=== PATIENT | female | born 1950 | race Two or more races ===

== ENCOUNTER 2017-04-14 11:28 | Outpatient (CLI) | payer OTHER | END 2017-04-14 14:36 | disposition home or self-care (01) | LOC: MAMO-SONO 11:28 | DX: E55.9 Vitamin D deficiency, unspecified (principal); N60.12 Diffuse cystic mastopathy of left breast; N60.11 Diffuse cystic mastopathy of right breast; R92.1 Mammographic calcification found on diagnostic imaging of breast; R87.610 Atypical squamous cells of undetermined significance on cytologic smear of cervix (ASC-US); M89.9 Disorder of bone, unspecified; Z12.31 Encounter for screening mammogram for malignant neoplasm of breast ==

== ENCOUNTER 2017-04-16 12:53 | Outpatient (CLI) | payer OTHER | END 2017-04-16 13:00 | disposition home or self-care (01) | LOC: NUCLEAR 12:53 | DX: E55.9 Vitamin D deficiency, unspecified (principal); N60.12 Diffuse cystic mastopathy of left breast; N60.11 Diffuse cystic mastopathy of right breast; R92.1 Mammographic calcification found on diagnostic imaging of breast; R87.610 Atypical squamous cells of undetermined significance on cytologic smear of cervix (ASC-US); M89.9 Disorder of bone, unspecified ==

== ENCOUNTER 2017-09-03 11:45 | Outpatient (CLI) | payer OTHER | END 2017-09-03 11:52 | disposition home or self-care (01) | LOC: RAD 11:45 | DX: S14.5XXA Injury of cervical sympathetic nerves, initial encounter (principal); S69.82XA Other specified injuries of left wrist, hand and finger(s), initial encounter; S29.8XXA Other specified injuries of thorax, initial encounter ==

== ENCOUNTER 2018-04-22 11:29 | Outpatient (CLI) | payer OTHER | END 2018-04-22 11:46 | disposition home or self-care (01) | LOC: MAMO-SONO 11:29 | DX: R92.1 Mammographic calcification found on diagnostic imaging of breast (principal); E55.9 Vitamin D deficiency, unspecified; N60.12 Diffuse cystic mastopathy of left breast; N60.11 Diffuse cystic mastopathy of right breast; R87.610 Atypical squamous cells of undetermined significance on cytologic smear of cervix (ASC-US); M89.8X8 Other specified disorders of bone, other site; Z12.31 Encounter for screening mammogram for malignant neoplasm of breast ==

== ENCOUNTER 2019-04-02 10:57 | Outpatient (CLI) | payer OTHER | END 2019-04-02 11:01 | disposition home or self-care (01) | LOC: NUCLEAR 10:57 | DX: M89.8X0 Other specified disorders of bone, multiple sites (principal); N60.12 Diffuse cystic mastopathy of left breast; N60.11 Diffuse cystic mastopathy of right breast; R92.1 Mammographic calcification found on diagnostic imaging of breast; R87.610 Atypical squamous cells of undetermined significance on cytologic smear of cervix (ASC-US); E55.9 Vitamin D deficiency, unspecified; M81.0 Age-related osteoporosis without current pathological fracture; M85.89 Other specified disorders of bone density and structure, multiple sites; N83.201 Unspecified ovarian cyst, right side; N83.202 Unspecified ovarian cyst, left side; N83.8 Other noninflammatory disorders of ovary, fallopian tube and broad ligament; N83.292 Other ovarian cyst, left side; N83.291 Other ovarian cyst, right side ==

== ENCOUNTER 2019-08-10 15:05 | Outpatient (CLI) | payer OTHER | END 2019-08-10 15:16 | disposition home or self-care (01) | LOC: MAMO-SONO 15:05 | DX: Z12.31 Encounter for screening mammogram for malignant neoplasm of breast (principal); E55.9 Vitamin D deficiency, unspecified; N60.12 Diffuse cystic mastopathy of left breast; N60.11 Diffuse cystic mastopathy of right breast; R92.1 Mammographic calcification found on diagnostic imaging of breast; R87.610 Atypical squamous cells of undetermined significance on cytologic smear of cervix (ASC-US); M89.8X8 Other specified disorders of bone, other site; N76.2 Acute vulvitis; N83.9 Noninflammatory disorder of ovary, fallopian tube and broad ligament, unspecified; N83.209 Unspecified ovarian cyst, unspecified side; N60.19 Diffuse cystic mastopathy of unspecified breast ==

== ENCOUNTER 2019-12-14 10:17 | Outpatient (CLI) | payer OTHER | END 2019-12-14 10:33 | disposition home or self-care (01) | LOC: SONOGRAMA 10:17 | PROVIDERS: ATTEND Obstetrics & Gynecology Gynecology | DX: N83.292 Other ovarian cyst, left side (principal); N83.291 Other ovarian cyst, right side; N60.12 Diffuse cystic mastopathy of left breast; N60.11 Diffuse cystic mastopathy of right breast; R92.1 Mammographic calcification found on diagnostic imaging of breast; N87.0 Mild cervical dysplasia; M89.8X8 Other specified disorders of bone, other site; N76.2 Acute vulvitis; E55.9 Vitamin D deficiency, unspecified; N83.209 Unspecified ovarian cyst, unspecified side ==

== ENCOUNTER 2020-04-14 10:35 | Outpatient (CLI) | payer OTHER | END 2020-04-14 10:46 | disposition home or self-care (01) | LOC: SONOGRAMA 10:35 | PROVIDERS: ATTEND Obstetrics & Gynecology Gynecology | DX: N83.291 Other ovarian cyst, right side (principal); N83.292 Other ovarian cyst, left side ==

== ENCOUNTER 2020-11-29 13:41 | Outpatient (CLI) | payer OTHER | END 2020-11-29 14:07 | disposition home or self-care (01) | LOC: MAMO-SONO 13:41 | PROVIDERS: ATTEND Obstetrics & Gynecology Gynecology | DX: N83.292 Other ovarian cyst, left side (principal); N83.291 Other ovarian cyst, right side; Z12.31 Encounter for screening mammogram for malignant neoplasm of breast; N60.12 Diffuse cystic mastopathy of left breast; N60.11 Diffuse cystic mastopathy of right breast; N87.0 Mild cervical dysplasia; E55.9 Vitamin D deficiency, unspecified; M89.8X8 Other specified disorders of bone, other site; N76.1 Subacute and chronic vaginitis; N76.2 Acute vulvitis; N83.01 Follicular cyst of right ovary ==

== ENCOUNTER 2021-11-29 14:39 | Outpatient (CLI) | payer OTHER | END 2021-11-29 14:50 | disposition home or self-care (01) | LOC: MAMO-SONO 14:39 | PROVIDERS: ATTEND Obstetrics & Gynecology Gynecology | DX: Z12.31 Encounter for screening mammogram for malignant neoplasm of breast (principal); N60.11 Diffuse cystic mastopathy of right breast; N60.12 Diffuse cystic mastopathy of left breast; N83.291 Other ovarian cyst, right side ==

== ENCOUNTER 2023-01-01 14:54 | Outpatient (CLI) | payer OTHER | END 2023-01-01 15:20 | disposition home or self-care (01) | LOC: MAMO-SONO 14:54 | PROVIDERS: ATTEND Obstetrics & Gynecology Gynecology | DX: N60.19 Diffuse cystic mastopathy of unspecified breast (principal); N60.12 Diffuse cystic mastopathy of left breast; N60.11 Diffuse cystic mastopathy of right breast; N83.292 Other ovarian cyst, left side; N83.291 Other ovarian cyst, right side; Z12.31 Encounter for screening mammogram for malignant neoplasm of breast; E11.9 Type 2 diabetes mellitus without complications; R92.1 Mammographic calcification found on diagnostic imaging of breast; R87.610 Atypical squamous cells of undetermined significance on cytologic smear of cervix (ASC-US); N83.01 Follicular cyst of right ovary; N76.2 Acute vulvitis ==

== ENCOUNTER 2024-11-18 09:36 | Outpatient (CLI) | payer OTHER | END 2024-11-18 09:42 | disposition home or self-care (01) | LOC: RAD 09:36 | DX: Q65.89 Other specified congenital deformities of hip (principal); M25.851 Other specified joint disorders, right hip; M25.852 Other specified joint disorders, left hip ==

== ENCOUNTER 2025-01-26 12:57 | Outpatient (CLI) | payer OTHER | END 2025-01-26 13:05 | disposition home or self-care (01) | LOC: SONOGRAMA 12:57 | PROVIDERS: ATTEND Physical Medicine & Rehabilitation | DX: Z01.419 Encounter for gynecological examination (general) (routine) without abnormal findings (principal) ==